=== PATIENT | female | born 1975 | race Caucasian/White ===

== ENCOUNTER 2016-09-28 20:03 | Emergency (ER) | payer OTHER ==
[~2016-09-28] VITALS: Ht 160 cm; Wt 54.4 kg
[~2016-09-28 20:03] MED LIST: ALDACTONE25 MG PO; AMIGESIC500 MG PO; AMLODIPINE BESYL5 M1 PO; BENTYL 20 MG TA20 M1 PO; CELEBREX 200 M200 M1 PO; CITRATE OF MAG296 ML PO; CLARITIN10 MG PO; COLACE100 MG PO; COZAAR 25 MG TA25 M1 PO; COZAAR 25 MG TA25 MG PO; COZAAR 50 MG TA50 M2 PO; COZAAR100 MG PO; CREON 10 CAPSUL1 CA1 PO; CREON DR 24,001 EACH PO; FLEET ENEMA118 ML RECTAL; FLONASE 0.05%50 MCG NASAL; HYDROCODON-ACE1 EAC7 PO; HYDROCODON-ACE1 EACH PO; HYDROCODONE-AP1 EAC6 PO; HYZAAR 100-12.1 EACH PO; HYZAAR 100-251 EACH PO; IBUPROFEN 800800 M1 PO; K-DUR 20 MEQ T20 MEQ PO; KLOR-CON 10 ER10 MEQ PO; KLOR-CON 1010 MEQ PO; KLOR-CON20 ME1 PO; LOSARTAN POTAS100 MG PO; MACROBID 100 M100 M1 PO; MOBIC7.5 MG PO; NAPROSYN500 MG PO; NORCO 5-325 TA1 EACH PO; NORVASC 5 MG TAB5 MG PO; NORVASC10 MG PO; NORVASC5 MG PO; OMEPRAZOLE 20 M20 M1 PO; OXYCODONE HCL 55 MG PO; PANTOPRAZOLE SO40 MG PO; PENICILLIN V P500 MG PO; PENICILLIN VK250 MG PO; PENICILLIN VK500 M1 PO; PERCOCET; PERCOCET 10-321 EACH PO; PERCOCET 5-3251 EACH PO; PERCOCET PO; PHENERGAN 25 MG25 M1 PO; POTASSIUM20 PO; PROTONIX40 M2 PO; REGLAN 10 MG TA10 M1 PO; REGLAN 10 MG TA10 MG; REGLAN 10 MG TA10 MG PO; TRAMADOL 50 MG50 MG PO; ULTRAM 50MG TAB50 MG PO; VALIUM5 MG PO; ZANTAC 150MG T150 M1 PO; ZEGERID OTC 201 EACH PO; ZOFRAN ODT4 MG PO
[2016-09-28 20:37] LABS: ABSOLUTE NEUTROPHILS 4.2 thou/uL (1.4-8.2); BASOPHILS 0.6 % (0.0-2.0); EOSINOPHILS 0.8 % (0.0-3.0); HEMATOCRIT 43.9 % (37.0-47.0); HEMOGLOBIN 15.1 gm/dL (12.0-15.0); LYMPHOCYTES 33.4 % (24.0-44.0); MCHC 34.5 g/dL (28.0-37.0); MCV 87.1 fL (80.0-100.0); MONOCYTES 5.1 % (1.0-8.0); PLATELET COUNT 267 thou/uL (150-400); POLYS 60.1 % (36.0-66.0); RBC 5.04 mil/uL (4.20-5.00); RDW 13.6 % (10.5-14.5); URINE BILIRUBIN NEGATIVE (Negative); URINE BLOOD NEGATIVE (Negative); URINE COLOR YELLOW; URINE GLUCOSE-RANDOM* NEGATIVE (Negative); URINE KETONES NEGATIVE (Negative); URINE NITRITE NEGATIVE (Negative); URINE PROTEIN (DIPSTICK) NEGATIVE (Negative); URINE UROBILINOGEN 0.2 E.U./dl (0.2-1.0)
[2016-09-28 20:39] LABS: MANUAL DIFF NO
[2016-09-28 21:11] LABS: ALBUMIN 3.4 g/dL (3.4-5.0); ALKALINE PHOSPHATASE 81 U/L (46-116); ANION GAP 8 mmol/L (7-16); BUN 4 mg/dL (7-18); CHLORIDE 106 mmol/L (98-107); CO2 24 mmol/L (21-32); CREATININE 0.8 mg/dL (0.6-1.0); DIRECT BILIRUBIN < 0.1 mg/dL (<0.1-0.3); GLUCOSE 95 mg/dL (74-106); POTASSIUM 3.3 mmol/L (3.5-5.1); SGOT 17 U/L (15-37); SGPT 14 U/L (30-65); SODIUM 138 mmol/L (136-145); TOTAL BILIRUBIN 0.4 mg/dL (<0.1-1.0); TOTAL PROTEIN 6.6 g/dL (6.4-8.2)
[2016-09-28] MEDS ORDERED: ONDANSETRON HCL4 M2 PO (22:22)
[2016-09-28] MEDS ORDERED: CARAFATE 1 GM TA1 G1 PO (22:22)
[2016-09-28] MEDS ORDERED: HYDROCODONE-AP1 EAC6 PO (22:22)
[2016-09-28 22:25] VITALS: BP 174/98
[2016-10-03] MEDS ORDERED: BENTYL 20 MG TA20 M1 PO (16:13)
[2016-10-03] MEDS ORDERED: PROTONIX40 M4 PO (16:13)
[2016-10-03] MEDS ORDERED: CARAFATE 1 GM TA1 G1 PO (16:13)
== END 2016-09-28 22:31 | disposition home or self-care (01) ==
LOC: ER 20:03
PROVIDERS: Nurse Practitioner
DX: R10.13 Epigastric pain (principal); R11.2 Nausea with vomiting, unspecified; K86.1 Other chronic pancreatitis; M19.90 Unspecified osteoarthritis, unspecified site; I10 Essential (primary) hypertension; K21.9 Gastro-esophageal reflux disease without esophagitis; F17.210 Nicotine dependence, cigarettes, uncomplicated; Z90.89 Acquired absence of other organs